=== PATIENT | female | born 1970 ===

== ENCOUNTER → 2016-11-12 | Outpatient (CLI) | payer MEDICAID ==
[~2016-11-12] MED LIST: CATAPRES0.2 M1 PO; DESYREL100 MG PO; FLONASE 50 MCG/16 GM; HALDOL1 MG PO; IBUPROFEN800 MG PO; LOPRESSOR25 MG PO; LUVOX50 MG PO; LYRICA 75MG CAP75 MG PO; MOTRIN800 MG PO; PERCOCET 5-3251 EACH; PERCOCET 5-3251 EACH PO; PRILOSEC20 M1 PO; PRILOSEC20 MG PO; PROTONIX40 MG PO; SINGULAIR10 MG PO; WELLBUTRIN SR150 MG PO; XANAX1 MG PO; ZYPREXA ZYDIS15 MG PO; ZYRTEC10 M1 PO
== END | disposition disaster alternative care site (69) ==
LOC: GRAD 07:44
DX: R10.84 Generalized abdominal pain (principal); J98.4 Other disorders of lung; Z90.49 Acquired absence of other specified parts of digestive tract
CPT/HCPCS: Q9967